=== PATIENT | female | born 1960 | race Hispanic/Latino ===

== ENCOUNTER 2023-04-20 07:59 | Emergency (ER) | payer BC, OTHER ==
[~2023-04-20] VITALS: Ht 162.6 cm; Wt 109.8 kg
[2023-04-20 08:47] LABS: BASOPHILS % (AUTO) 0.6 % (0.0-5.0); EOSINOPHILS % (AUTO) 4.6 % (0.0-8.0); HEMATOCRIT 35.8 % (36-48); LYMPHOCYTES % (AUTO) 26.8 % (21.0-51.0); MEAN CORPUSCULAR HGB CONC 32.7 g/dL (32.0-36.0); MEAN CORPUSCULAR VOLUME 91.8 fL (79-99); NEUTROPHILS % (AUTO) 61.7 % (40.0-77.0); PLATELET COUNT (AUTO) 244 K/uL (130-400); RED CELL DISTRIBUTION WIDTH 13.1 % (11.0-15.5); WHITE BLOOD COUNT (AUTO) 6.8 K/uL (4.8-10.8)
[2023-04-20 09:02] LABS: CREATININE 0.6 mg/dL (0.5-1.5)
[2023-04-20] MEDS ORDERED: CEFTRIAXONE 1G VIAL ONE (09:09)
[2023-04-20] MEDS ORDERED: CEPH500B PO (09:12)
[2023-04-20 09:18] VITALS: BP 133/79
[2023-04-20] MEDS ORDERED: CEFTRIAXONE 1G VIAL IM SCH (09:30)
== END 2023-04-20 09:21 | disposition home or self-care (01) ==
LOC: EDH 07:59
DX: L03.012 Cellulitis of left finger (principal); L03.011 Cellulitis of right finger; E11.65 Type 2 diabetes mellitus with hyperglycemia; Z90.710 Acquired absence of both cervix and uterus
CPT/HCPCS: 99284; 80048; 85025; 86140; 36415; 73140; 96372; J0696

== ENCOUNTER 2023-05-08 11:22 | Emergency (ER) | payer BC ==
[~2023-05-08] VITALS: Ht 152.4 cm; Wt 111.1 kg
[~2023-05-08 11:22] MED LIST: CEPH500B PO
[2023-05-08 11:26] VITALS: BP 178/69
== END 2023-05-08 13:37 | disposition home or self-care (01) ==
LOC: EDH 11:22
DX: L03.012 Cellulitis of left finger (principal); E11.9 Type 2 diabetes mellitus without complications; E78.00 Pure hypercholesterolemia, unspecified
CPT/HCPCS: 99281